=== PATIENT | female | born 1990 | race African-American/Black ===

== ENCOUNTER 2017-02-26 03:11 | Emergency (ER) | payer SELFPAY ==
[~2017-02-26] VITALS: Ht 167.6 cm; Wt 72.6 kg
[2017-02-26 03:32] VITALS: BP 106/76
[2017-02-26 03:33] VITALS: BP 1/1
== END 2017-02-26 03:20 | disposition left against medical advice (07) ==
LOC: EDBD 03:11 → EMR 03:19
DX: R10.9 Unspecified abdominal pain (principal); Z53.21 Procedure and treatment not carried out due to patient leaving prior to being seen by health care provider
CPT/HCPCS: 99281